=== PATIENT | female | born 1980 | race Caucasian/White ===

== ENCOUNTER 2023-10-04 21:04 | Emergency (ER) | payer MEDICAID ==
[~2023-10-04] VITALS: Ht 167.6 cm; Wt 59.9 kg
[2023-10-04 21:12] VITALS: BP_SYST 101; PULSE 112; RESP 20; TEMP 97.3; O2SAT 99
[2023-10-04] MEDS ORDERED: CEPH-548 PO (22:55)
[2023-10-04] MEDS ORDERED: DOXY100C5 PO (22:55)
[2023-10-04] MEDS: LIDOCAINE/EPI 1% 1:100000 20 ML VIAL INJ ONE (22:59)
== END 2023-10-04 23:00 | disposition home or self-care (01) ==
LOC: SED 21:04
DX: L02.214 Cutaneous abscess of groin (principal); F32.A Depression, unspecified; Z79.2 Long term (current) use of antibiotics; Z79.899 Other long term (current) drug therapy
CPT/HCPCS: 99284